=== PATIENT | female | born 1945 | race Caucasian/White ===

== ENCOUNTER 2018-01-25 21:51 | Emergency (ER) | payer MEDICARE ==
--- NOTE | 2018-01-25 22:01 | Emergency Department Record ---
History of Present Illness - General Chief Complaint: Ankle/Foot Injury Stated Complaint: RT FOOT PINKIE TOE PAIN,SWELLING, Time Seen by Provider: 01/25/18 21:55 Mode of Arrival: Wheelchair Limitations: No limitations - History of Present Illness Initial Comments: The patient is here due to R 5th toe pain. She banged it on an object about 20 minutes ago and thinks she broke it. She denies any other injuries. MD Complaint: Foot injury - Related Data Home Medications Medication Instructions Recorded Confirmed Last Taken Aspirin Chewable 81 mg PO DAILY 01/25/18 01/25/18 01/25/18 Duloxetine HCl [Cymbalta] 20 mg PO DAILY 01/25/18 01/25/18 01/25/18 Gabapentin [Neurontin] 300 mg PO BID 01/25/18 01/25/18 01/25/18 Omeprazole [Prilosec] 20 mg PO DAILY 01/25/18 01/25/18 01/25/18 Rosuvastatin Calcium [Crestor] 5 mg PO DAILY 01/25/18 01/25/18 01/25/18 Allergies Allergy/AdvReac Type Severity Reaction Status Date / Time bacitracin Allergy HYPERSENSIT Verified 01/25/18 22:03 [From Neosporin IVITY ([id number])] neomycin Allergy HYPERSENSIT Verified 01/25/18 22:03 [From Neosporin IVITY ([id number])] Penicillins Allergy RASH Verified 01/25/18 22:03 polymyxin B Allergy HYPERSENSIT Verified 01/25/18 22:03 [From Neosporin IVITY ([id number])] Review of Systems Constitutional: Denies: Chills, Fever Physical Exam - General General Appearance: Alert, Cooperative, No acute distress - Extremities Extremities exam: Normal inspection, Normal capillary refill, Tenderness (There is tenderness to the R 5th toe with a very mild valgus deformity. There is no MT tenderness.), Other (The R ankle is nontender.). negative: Full ROM, Joint swelling, Pedal edema Course Vital Signs 01/25/18 21:59 Temperature 98.4 F Pulse Rate [ 66 Pulse Ox Probe] Respiratory 18 Rate Blood Pressure 131/73 [Left Arm] Pulse Ox 99 - Reevaluation(s) Reevaluation #1: I did discuss the need for juliana taping with the patient and a hard soled shoe for 2 weeks. She is to be referred to Dr. Robledo for this week. 01/25/18 22:46 Medical Decision Making - Data Complexity MDM Data: X-Ray Ordered and/or Reviewed - Radiology Data Radiology results: Report reviewed (R foot: Mildly displaced fx mid proximal phalynx R 5th toe.) Disposition Disposition: Discharge Clinical Impression: Toe fracture, right Qualifiers: Encounter type: initial encounter Toe: unspecified toe Fracture type: closed Fracture alignment: displaced Qualified Code(s): S92.911A - Unspecified fracture of right toe(s), initial encounter for closed fracture Disposition: Home, Self-Care Condition: (2) Stable Instructions: Toe Fracture (ED) Additional Instructions: Please use Tylenol for pain and ice and elevate the foot when possible. Please keep the toes juliana taped and wear the hard soled shoe. Please see Dr. Robledo in the Specialty clinic later this week. Return to the ER for any problems or new issues. Referrals: [facility] Specialty Clinics [Provider Group] Forms: Patient Portal Access Time of Disposition: 22:47 Quality - Quality Measures Quality Measures: N/A - Blood Pressure Screening View Details: Yes Does Patient Have Any of the Following: No Blood Pressure Classification: Pre-Hypertensive BP Reading Systolic Measurement: 130 Diastolic Measurement: 75 Screening for High Blood Pressure: < Pre-Hypertensive BP, F/U Documented > [ G8950] Pre-Hypertensive Follow-up Interventions: Referral to alternative/primary care provider.
[2018-01-25] MEDS: ACETAMINOPHEN 325 MG TAB PO ONE (22:58)
--- NOTE | 2018-01-27 10:50 | RADIOLOGY REPORT ---
EXAM: RIGHT FOOT HISTORY: TRAUMA, RIGHT FIFTH TOE KICK INJURY WITH PAIN AND SWELLING. TECHNIQUE: Three views of the right foot were obtained. Comparison: None. Encounter: Initial. FINDINGS: Diffuse osteopenia is seen consistent with osteoporosis. Mild degenerative arthritis at the first MTP joint with a mild hallux valgus deformity. There is an oblique fracture of the shaft of the proximal phalanx of the fifth toe with very minimal lateral angulation of the distal fracture fragment. No other fracture of the right foot identified. Moderate posterior calcaneal spur. IMPRESSION: 1. FRACTURE OF THE SHAFT OF THE PROXIMAL PHALANX OF THE RIGHT FIFTH TOE. 2. MILD DEGENERATIVE CHANGE FIRST MTP JOINT AND A MODERATE POSTERIOR CALCANEAL SPUR. JOB NUMBER: [id number] MTDD
== END 2018-01-25 23:08 | disposition home or self-care (01) ==
LOC: ER 21:51
DX: S92.511A Displaced fracture of proximal phalanx of right lesser toe(s), initial encounter for closed fracture (principal); W22.8XXA Striking against or struck by other objects, initial encounter
CPT/HCPCS: 99283

== ENCOUNTER 2018-04-20 10:12 | Emergency (ER) | payer MEDICARE ==
--- NOTE | 2018-04-20 10:47 | Emergency Department Record ---
History of Present Illness - General Chief Complaint: Back Pain/Injury Stated Complaint: BACK PAIN Time Seen by Provider: 04/20/18 10:35 Source: Patient, RN notes reviewed - History of Present Illness Initial Comments: patient has pain in the left thoracic back pain. patient was moving boxes and [place] Complaint: Back pain Onset/Timin -: Week(s) Similar Symptoms Previously: Yes Place: Home Severity: Moderate Severity scale (1-10): 8 Quality: Aching, Sharp Consistency: Getting worse Improves With: Medication Worsens With: Movement Context: Turning/twisting, While lifting Associated Symptoms: Denies other symptoms Treatments Prior to Arrival: NSAIDS, Prescription analgesics Treatment Prior to Arrival Comment:: Aleeve and left over meds from previous back pain - Related Data Home Medications Medication Instructions Recorded Confirmed Last Taken Albuterol Sulfate [Ventolin Hfa] 1 - 2 puff IH .EVERY 4-6 HOURS PRN 04/20/1811/02 Unknown Metoprolol Succinate [Toprol Xl] 25 mg PO DAILY 04/20/18 04/20/18 04/20/18 Pantoprazole Sodium [Protonix] 40 mg PO DAILY 04/20/18 04/20/18 04/20/18 Previous Rx's Medication Instructions Recorded Cyclobenzaprine HCl [Flexeril] 10 mg PO TID #30 tablet 04/20/18 Naproxen [Naprosyn] 500 mg PO BID #30 tablet 04/20/18 Tramadol HCl [Ultram] 50 mg PO Q8H #9 tab 04/20/18 Allergies Allergy/AdvReac Type Severity Reaction Status Date / Time bacitracin Allergy HYPERSENSIT Verified 01/25/18 22:03 [From Neosporin IVITY ([id number])] neomycin Allergy HYPERSENSIT Verified 01/25/18 22:03 [From Neosporin IVITY ([id number])] Penicillins Allergy RASH Verified 01/25/18 22:03 polymyxin B Allergy HYPERSENSIT Verified 01/25/18 22:03 [From Neosporin IVITY ([id number])] Travel Screening - Travel/Exposure Within Last 30 Days Have you traveled within the last 30 days?: No - Travel/Exposure Within Last Year Have you traveled outside the [place] in the last year?: No - Additonal Travel Details Have you been exposed to anyone with a communicable illness?: No - Travel Symptoms Symptom Screening: None Review of Systems Reviewed: No additional complaints except as noted below Constitutional: Reports: As per HPI. Denies: Chills, Fever, Malaise, Night sweats, Weakness, Weight change Eyes: Reports: As per HPI. Denies: Eye discharge, Eye pain, Photophobia, Vision change ENT: Reports: As per HPI. Denies: Congestion, Dental pain, Ear pain, Epistaxis , Hearing loss, Throat pain Respiratory: Reports: As per HPI. Denies: Cough, Dyspnea, Hemoptysis, Stridor, Wheezes Cardiovascular: Reports: As per HPI. Denies: Arrhythmia, Chest pain, Dyspnea on exertion, Edema, Murmurs, Orthopnea, Palpitations, Paroxysmal nocturnal dyspnea, Rheumatic Fever, Syncope Endocrine: Reports: As per HPI. Denies: Fatigue, Heat or cold intolerance, Polydipsia, Polyuria Gastrointestinal: Reports: As per HPI. Denies: Abdominal pain, Constipation, Diarrhea, Hematemesis, Hematochezia, Melena, Nausea, Vomiting Genitourinary: Reports: As per HPI. Denies: Abnormal menses, Discharge, Dyspareunia, Dysuria, Frequency, Hematuria, Incontinence, Retention, Urgency Musculoskeletal: Reports: As per HPI, Back pain. Denies: Arthralgia, Gout, Joint swelling, Myalgia, Neck pain Skin: Reports: As per HPI. Denies: Bruising, Change in color, Change in hair/ nails, Lesions, Pruritus, Rash Neurological: Reports: As per HPI. Denies: Abnormal gait, Confusion, Headache, Numbness, Paresthesias, Seizure, Tingling, Tremors, Vertigo, Weakness Psychiatric: Reports: As per HPI. Denies: Anxiety, Auditory hallucinations, Depression, Homicidal thoughts, Suicidal thoughts, Visual hallucinations Hematological/Lymphatic: Reports: As per HPI. Denies: Anemia, Blood Clots, Easy bleeding, Easy bruising, Swollen glands Past Medical History - SOCIAL HISTORY Smoking Status: Current every day smoker Alcohol Use: Occasional Drug Use: None - RESPIRATORY Hx Respiratory Disorders: Yes Hx COPD: Yes - CARDIOVASCULAR Hx Cardio Disorders: Yes Hx Heart Attack: Yes Hx Hypertension: Yes - NEURO Hx Neuro Disorders: Yes Hx Neuropathy: Yes - GI Hx GI Disorders: Yes Hx Reflux: Yes - Hx Genitourinary Disorders: No - ENDOCRINE Hx Endocrine Disorders: No - MUSCULOSKELETAL Hx Musculoskeletal Disorders: Yes Comment:: OSTEOPNEIA - PSYCH Hx Psych Problems: Yes Hx Depression: Yes - HEMATOLOGY/ONCOLOGY Hx Hematology/Oncology Disorders: Yes Hx Cancer: Yes (SKIN) Family Medical History Any Significant Family History?: No Physical Exam - General General Appearance: Alert, Oriented x3, Cooperative, No acute distress - Head Head exam: Normal inspection - Eye Eye exam: Normal appearance, PERRL Pupils: Normal accommodation - ENT ENT exam: Normal exam, Mucous membranes moist, Normal external ear exam, Normal orophraynx, TM's normal bilaterally Ear exam: Normal external inspection. negative: External canal tenderness Nasal Exam: Normal inspection. negative: Discharge, Sinus tenderness Mouth exam: Normal external inspection, Tongue normal Teeth exam: Normal inspection. negative: Dental caries Throat exam: Normal inspection. negative: Tonsillar erythema, Tonsillar exudate - Neck Neck exam: Normal inspection, Full ROM. negative: Tenderness - Respiratory Respiratory exam: Normal lung sounds bilaterally. negative: Respiratory distress - Cardiovascular Cardiovascular Exam: Regular rate, Normal rhythm, Normal heart sounds - GI/Abdominal GI/Abdominal exam: Soft, Normal bowel sounds. negative: Tenderness - Rectal Rectal exam: Deferred - exam: Deferred - Extremities Extremities exam: Normal inspection, Full ROM, Normal capillary refill. negative: Tenderness - Back Back exam: Reports: Normal inspection, Full ROM, Muscle spasm, Tenderness (left thoracic back pain). Denies: Rash noted - Neurological Neurological exam: Alert, Normal gait, Oriented X3, Reflexes normal - Psychiatric Psychiatric exam: Normal affect, Normal mood - Skin Skin exam: Dry, Intact, Normal color, Warm Course Vital Signs 04/20/18 10:32 Temperature 97.7 F Pulse Rate 73 Respiratory 16 Rate Blood Pressure 153/72 Pulse Ox 100 Disposition Clinical Impression: Thoracic myofascial strain Qualifiers: Encounter type: initial encounter Qualified Code(s): S29.019A - Strain of muscle and tendon of unspecified wall of thorax, initial encounter Disposition: Home, Self-Care Condition: (1) Good Instructions: Low Back Strain (ED) Additional Instructions: follow up with a family Dr in one week alternate between hot and cold Prescriptions: Cyclobenzaprine HCl [Flexeril] 10 mg PO TID #30 tablet Naproxen [Naprosyn] 500 mg PO BID #30 tablet Tramadol HCl [Ultram] 50 mg PO Q8H #9 tab Time of Disposition: 10:52 Quality - Quality Measures Quality Measures: N/A - Blood Pressure Screening Does Patient Have Any of the Following: No, Active Dx of HTN Blood Pressure Classification: Hypertensive Reading Systolic Measurement: 153 Diastolic Measurement: 72 Screening for High Blood Pressure: Patient Exclusion, Hx of HTN [G9744]
== END 2018-04-20 11:05 | disposition home or self-care (01) ==
LOC: ER 10:12
DX: S29.019A Strain of muscle and tendon of unspecified wall of thorax, initial encounter (principal); J44.9 Chronic obstructive pulmonary disease, unspecified; I10 Essential (primary) hypertension; I25.2 Old myocardial infarction; F17.210 Nicotine dependence, cigarettes, uncomplicated; X50.0XXA Overexertion from strenuous movement or load, initial encounter; Y93.E6 Activity, residential relocation; Y92.009 Unspecified place in unspecified non-institutional (private) residence as the place of occurrence of the external cause
CPT/HCPCS: 99282

== ENCOUNTER 2018-06-05 11:35 | Emergency (ER) | payer MEDICARE ==
[2018-06-05] MEDS ORDERED: MORPHINE SULFATE 10 MG/ML VIAL IM ONE (12:08)
[2018-06-05] MEDS ORDERED: PROMETHAZINE HCL 25 MG/ML VIAL IM ONE (12:09)
[2018-06-05] MEDS ORDERED: KETOROLAC 30 MG/ML VIAL IM ONE (12:13)
--- NOTE | 2018-06-05 12:18 | Emergency Department Record ---
History of Present Illness - General Chief Complaint: Back Pain/Injury Stated Complaint: BACK PAIN Time Seen by Provider: 06/05/18 11:55 Source: Patient, Family Mode of Arrival: Ambulatory Limitations: No limitations - History of Present Illness Initial Comments: pt has had back pain for 6 wks. she believes it started when she lifted a box. it has grown progressively worse. she is unable to get in a comfortable position. she denies any numbness MD Complaint: Back pain Onset/Timin -: Days(s) Place: Home Radiation: None Severity scale (1-10): 10 Consistency: Constant Improves With: None Worsens With: Movement, Sitting upright, Supine Context: While lifting Associated Symptoms: Difficulty walking Treatments Prior to Arrival: NSAIDS, Other - Related Data Previous Rx's Medication Instructions Recorded Hydrocodone/Acetaminophen [[place] 0.5 - 1 tab PO TID PRN #9 tab 06/05/18 5mg/325mg] Allergies Allergy/AdvReac Type Severity Reaction Status Date / Time bacitracin Allergy HYPERSENSIT Verified 06/05/18 11:54 [From Neosporin IVITY ([id number])] neomycin Allergy HYPERSENSIT Verified 06/05/18 11:54 [From Neosporin IVITY ([id number])] Penicillins Allergy RASH Verified 06/05/18 11:54 polymyxin B Allergy HYPERSENSIT Verified 06/05/18 11:54 [From Neosporin IVITY ([id number])] Travel Screening - Travel/Exposure Within Last 30 Days Have you traveled within the last 30 days?: No - Travel/Exposure Within Last Year Have you traveled outside the [place] in the last year?: No - Additonal Travel Details Have you been exposed to anyone with a communicable illness?: No - Travel Symptoms Symptom Screening: None Review of Systems Reviewed: No additional complaints except as noted below Constitutional: Reports: As per HPI. Denies: Chills, Fever, Malaise, Night sweats, Weakness, Weight change Eyes: Reports: As per HPI. Denies: Eye discharge, Eye pain, Photophobia, Vision change ENT: Reports: As per HPI. Denies: Congestion, Dental pain, Ear pain, Epistaxis , Hearing loss, Throat pain Respiratory: Reports: As per HPI. Denies: Cough, Dyspnea, Hemoptysis, Stridor, Wheezes Cardiovascular: Reports: As per HPI. Denies: Arrhythmia, Chest pain, Dyspnea on exertion, Edema, Murmurs, Orthopnea, Palpitations, Paroxysmal nocturnal dyspnea, Rheumatic Fever, Syncope Endocrine: Reports: As per HPI. Denies: Fatigue, Heat or cold intolerance, Polydipsia, Polyuria Gastrointestinal: Reports: As per HPI. Denies: Abdominal pain, Constipation, Diarrhea, Hematemesis, Hematochezia, Melena, Nausea, Vomiting Genitourinary: Reports: As per HPI. Denies: Abnormal menses, Discharge, Dyspareunia, Dysuria, Frequency, Hematuria, Incontinence, Retention, Urgency Musculoskeletal: Reports: As per HPI, Back pain. Denies: Arthralgia, Gout, Joint swelling, Myalgia, Neck pain Skin: Reports: As per HPI. Denies: Bruising, Change in color, Change in hair/ nails, Lesions, Pruritus, Rash Neurological: Reports: As per HPI. Denies: Abnormal gait, Confusion, Headache, Numbness, Paresthesias, Seizure, Tingling, Tremors, Vertigo, Weakness Psychiatric: Reports: As per HPI. Denies: Anxiety, Auditory hallucinations, Depression, Homicidal thoughts, Suicidal thoughts, Visual hallucinations Hematological/Lymphatic: Reports: As per HPI. Denies: Anemia, Blood Clots, Easy bleeding, Easy bruising, Swollen glands Past Medical History - SOCIAL HISTORY Smoking Status: Light tobacco smoker (<10/day) Alcohol Use: Rare Drug Use: None - RESPIRATORY Hx Respiratory Disorders: Yes Hx COPD: Yes - CARDIOVASCULAR Hx Cardio Disorders: Yes Hx Heart Attack: Yes (2011) Hx Hypertension: Yes - NEURO Hx Neuro Disorders: Yes Hx Neuropathy: Yes - GI Hx GI Disorders: Yes Hx Reflux: Yes - Hx Genitourinary Disorders: No - ENDOCRINE Hx Endocrine Disorders: No - MUSCULOSKELETAL Hx Musculoskeletal Disorders: Yes Comment:: OSTEOPNEIA - PSYCH Hx Psych Problems: Yes Hx Depression: Yes - HEMATOLOGY/ONCOLOGY Hx Hematology/Oncology Disorders: Yes Hx Cancer: Yes (SKIN) Family Medical History Any Significant Family History?: No Physical Exam - General General Appearance: Alert, Oriented x3, Cooperative, Mild distress - Head Head exam: Normal inspection - Eye Eye exam: Normal appearance, PERRL, EOMI Pupils: Normal accommodation - ENT ENT exam: Normal exam, Mucous membranes moist, Normal external ear exam, Normal orophraynx Ear exam: Normal external inspection. negative: External canal tenderness Nasal Exam: Normal inspection. negative: Discharge, Sinus tenderness Mouth exam: Normal external inspection, Tongue normal Teeth exam: Normal inspection. negative: Dental caries Throat exam: Normal inspection. negative: Tonsillar erythema, Tonsillar exudate - Neck Neck exam: Normal inspection, Full ROM. negative: Tenderness - Respiratory Respiratory exam: Normal lung sounds bilaterally. negative: Respiratory distress - Cardiovascular Cardiovascular Exam: Regular rate, Normal rhythm, Normal heart sounds - GI/Abdominal GI/Abdominal exam: Soft, Normal bowel sounds. negative: Tenderness - Rectal Rectal exam: Deferred - exam: Deferred - Extremities Extremities exam: Normal inspection, Full ROM, Normal capillary refill. negative: Tenderness - Back Back exam: Reports: Full ROM, Muscle spasm, Tenderness. Denies: Rash noted - Neurological Neurological exam: Alert, CN II-XII intact, Normal gait, Oriented X3 - Psychiatric Psychiatric exam: Normal affect, Normal mood - Skin Skin exam: Dry, Intact, Normal color, Warm Course Vital Signs 06/05/18 11:40 Temperature 97.9 F Pulse Rate 77 Respiratory 18 Rate Blood Pressure 168/86 Pulse Ox 100 - Reevaluation(s) Reevaluation #1: 06/05/18 12:46 pt d/w carlo. mri will be ordered Disposition Disposition: Discharge Clinical Impression: Back pain Qualifiers: Back pain location: thoracic back pain Chronicity: acute Back pain laterality: midline Qualified Code(s): M54.6 - Pain in thoracic spine Disposition: Home, Self-Care Condition: (1) Good Instructions: Back Pain (ED) Additional Instructions: call to schedule MRI. take a norco prior to going. follow up with carlo. return sooner if worse. continue to take motrin with food. stop ultram. Prescriptions: Hydrocodone/Acetaminophen [[place] 5mg/325mg] 0.5 - 1 tab PO TID PRN #9 tab PRN Reason: Pain - General Forms: Patient Portal Access Quality - Quality Measures Quality Measures: N/A - Blood Pressure Screening Does Patient Have Any of the Following: No Blood Pressure Classification: Pre-Hypertensive BP Reading Systolic Measurement: 168 Diastolic Measurement: 86 Screening for High Blood Pressure: < Pre-Hypertensive BP, F/U Documented > [ G8950] Pre-Hypertensive Follow-up Interventions: Follow-up with rescreen every year.
== END 2018-06-05 13:03 | disposition home or self-care (01) ==
LOC: ER 11:35
DX: M54.6 Pain in thoracic spine (principal); J44.9 Chronic obstructive pulmonary disease, unspecified; I10 Essential (primary) hypertension; I25.2 Old myocardial infarction; F17.210 Nicotine dependence, cigarettes, uncomplicated
CPT/HCPCS: 99283 ×2; 96372; J1885; J2270; J2550

== ENCOUNTER 2018-07-09 19:57 | Emergency (ER) | payer MEDICARE ==
[2018-07-09] MEDS ORDERED: ACETAMINOPHEN 1,000 MG/100 ML BTL IVPB ONE (20:20)
[2018-07-09] MEDS ORDERED: KETOROLAC 30 MG/ML VIAL IVP ONE (20:20)
--- NOTE | 2018-07-09 20:27 | Emergency Department Record ---
History of Present Illness - General Chief Complaint: Back Pain/Injury Stated Complaint: BACK SPASM Time Seen by Provider: 07/09/18 20:09 Source: Patient Mode of Arrival: Ambulatory Limitations: No limitations - History of Present Illness Initial Comments: The patient is here due to worsening of her chronic back pain. The patient has had pain since she injured herself about 6 months ago. She since has been to the ER multiple times for these issues. Recently she had a thoracic spine MRI that demonstrated 3 compression fractures and she does have an appointment with [facility] in Aug. Now recently she has been having pain in the lower back in addition to her thoracic area. There has been no new trauma, fall or injury. Additionally she has had no leg numbness, weakness, or bowel or bladder incontinence. The patient states she has been having problems with urinary urgency for months but it is not new now. There have been no fevers, or chills and the patient is not on any blood thinners. MD Complaint: Back pain Onset/Timin -: Month(s) Similar Symptoms Previously: Yes Place: Home Radiation: None Severity: Severe Severity scale (1-10): 10 Quality: Aching Consistency: Constant Improves With: Sitting upright, Other Worsens With: Movement, Walking Context: Other Associated Symptoms: Denies other symptoms Treatments Prior to Arrival: Prescription analgesics Treatment Prior to Arrival Comment:: flexeril - Related Data Previous Rx's Medication Instructions Recorded Lidocaine Patch [Lidoderm] 1 ea TOP DAILY #10 patch 07/09/18 Allergies Allergy/AdvReac Type Severity Reaction Status Date / Time bacitracin Allergy HYPERSENSIT Unverified 06/08/18 15:19 [From Neosporin IVITY ([id number])] neomycin Allergy HYPERSENSIT Unverified 06/08/18 15:19 [From Neosporin IVITY ([id number])] Penicillins Allergy RASH Unverified 06/08/18 15:19 polymyxin B Allergy HYPERSENSIT Unverified 06/08/18 15:19 [From Neosporin IVITY ([id number])] Travel Screening - Travel/Exposure Within Last 30 Days Have you traveled within the last 30 days?: No - Travel Symptoms Symptom Screening: None Review of Systems Constitutional: Denies: Chills, Fever Eyes: Denies: Eye discharge ENT: Denies: Congestion Respiratory: Denies: Cough, Dyspnea Cardiovascular: Denies: Arrhythmia, Chest pain Endocrine: Denies: Fatigue Gastrointestinal: Denies: Abdominal pain Genitourinary: Reports: Dysuria Musculoskeletal: Reports: Back pain (chronic.) Skin: Denies: Bruising Past Medical History - SOCIAL HISTORY Smoking Status: Light tobacco smoker (<10/day) Alcohol Use: Rare Drug Use: None - RESPIRATORY Hx Respiratory Disorders: Yes Hx COPD: Yes - CARDIOVASCULAR Hx Cardio Disorders: Yes Hx Heart Attack: Yes (2011) Hx Hypertension: Yes - NEURO Hx Neuro Disorders: Yes Hx Neuropathy: Yes - GI Hx GI Disorders: Yes Hx Reflux: Yes - Hx Genitourinary Disorders: No - ENDOCRINE Hx Endocrine Disorders: No - MUSCULOSKELETAL Hx Musculoskeletal Disorders: Yes Comment:: OSTEOPNEIA - PSYCH Hx Psych Problems: Yes Hx Depression: Yes - HEMATOLOGY/ONCOLOGY Hx Hematology/Oncology Disorders: Yes Hx Cancer: Yes (SKIN) Family Medical History Any Significant Family History?: No Family Hx Comment (NOT TO BE USED IN PLACE OF ITEMS BELOW): denies Physical Exam - General General Appearance: Alert, Oriented x3, Cooperative, No acute distress - Head Head exam: Atraumatic, Normocephalic, Normal inspection - Eye Eye exam: Normal appearance, PERRL - Neck Neck exam: Normal inspection, Full ROM. negative: Tenderness - Respiratory Respiratory exam: Normal lung sounds bilaterally. negative: Respiratory distress - Cardiovascular Cardiovascular Exam: Regular rate, Normal rhythm, Normal heart sounds - GI/Abdominal GI/Abdominal exam: Soft, Normal bowel sounds. negative: Tenderness - Extremities Extremities exam: Normal inspection, Full ROM, Normal capillary refill, Other ( Neg SLR bilaterally.). negative: Joint swelling, Tenderness - Back Back exam: Reports: Normal inspection, Vertebral tenderness (Mild from L1-3.). Denies: Paraspinal tenderness - Neurological Neurological exam: Alert, Altered, Normal gait, Oriented X3, Reflexes normal. negative: Abnormal gait, Motor sensory deficit Course Vital Signs 07/09/18 20:05 Temperature 97.5 F L Pulse Rate 67 Respiratory 22 Rate Blood Pressure 146/81 Pulse Ox 97 - Reevaluation(s) Reevaluation #1: The patient is doing better at this time and does feel comfortable enough to go home. Her pain is improved. I did discuss the xray results and the new mild comp fx of L2. She is to try the new pain medicines and see her PCP tomorrow if needed. 07/09/18 21:38 Medical Decision Making - Data Complexity MDM Data: Labs Ordered and/or Reviewed, X-Ray Ordered and/or Reviewed - Lab Data Result diagrams: 07/09/18 20:30 07/09/18 20:30 - Radiology Data Radiology results: Report reviewed (Lumbar spine: Old compression fx L5, new mild compression fx L2.) Disposition Disposition: Discharge Clinical Impression: Lumbar compression fracture Qualifiers: Encounter type: initial encounter Lumbar vertebra fracture level: L2 Fracture type: closed Qualified Code(s): S32.020A - Wedge compression fracture of second lumbar vertebra, initial encounter for closed fracture Disposition: Home, Self-Care Condition: (2) Stable Instructions: Thoracolumbar Fracture (ED) Additional Instructions: Please continue your home medicines and try the Lidoderm patches. Please call your doctor tomorrow for further evaluation and possibly a pain clinic evaluation. Please return to the ER for any worsening pain, or any weakness or numbness. Prescriptions: Lidocaine Patch [Lidoderm] 1 ea TOP DAILY #10 patch Forms: Patient Portal Access Time of Disposition: 21:35 Quality - Quality Measures Quality Measures: N/A - Blood Pressure Screening View Details: Yes Does Patient Have Any of the Following: No Blood Pressure Classification: Pre-Hypertensive BP Reading Systolic Measurement: 146 Diastolic Measurement: 81 Screening for High Blood Pressure: < Pre-Hypertensive BP, F/U Documented > [ G8950] Pre-Hypertensive Follow-up Interventions: Referral to alternative/primary care provider.
[2018-07-09 20:34] LABS: BASO % 0.5 % (0-6); EOS % 0.6 % (0-6); GRAN % 64.3 % (47-80); HEMATOCRIT 41.8 % (35.0-47.0); LYMPH % 23.9 % (16-45); MEAN CELL VOLUME 90.1 fl (81-97); MEAN CORPUSCULAR HEMOGLOBIN 30.2 pg (27-33); MEAN CORPUSCULAR HGB CONC 33.5 g/dl (32-36); MEAN PLATELET VOLUME 10.7 fl (7.4-10.4); MONO % 10.7 % (0-9); PLATELET COUNT 324 K/uL (130-400); RED BLOOD COUNT 4.64 M/uL (3.80-5.40); RED CELL DISTRIBUTION WIDTH 13.9 % (11.5-14.5); WHITE BLOOD COUNT W/O DIFF 12.3 K/uL (4.2-12.2)
[2018-07-09 20:46] LABS: BLOOD UREA NITROGEN 15 mg/dL (8-23); CREATININE 0.9 mg/dL (0.5-0.9); EST GLOMERULAR FILTRATION RATE > 60 mL/min
[2018-07-09 20:49] LABS: GLUCOSE,RANDOM 99 mg/dL (74-109)
[2018-07-09] MEDS ORDERED: LIDOCAINE 5% PATCH TOP ONE (21:13)
[2018-07-09 21:24] LABS: URINE APPEARANCE CLEAR; URINE BILIRUBIN NEGATIVE (NEGATIVE); URINE BLOOD NEGATIVE (NEGATIVE); URINE COLOR YELLOW; URINE GLUCOSE (UA) NEGATIVE (NEGATIVE); URINE KETONE TRACE (NEGATIVE); URINE LEUKOCYTE ESTERASE NEGATIVE (NEGATIVE); URINE NITRITE NEGATIVE (NEGATIVE); URINE PROTEIN NEGATIVE (NEGATIVE); URINE UROBILINOGEN 0.2 E.U./dL (0.20 - 1.00)
--- NOTE | 2018-07-10 10:14 | RADIOLOGY REPORT ---
EXAM: LUMBAR SPINE, AP AND LATERAL VIEWS HISTORY: LOW BACK PAIN. NO HISTORY OF INJURY. TECHNIQUE: AP and lateral views of the lumbar spine were obtained. Comparison: No prior lumbar spine series. FINDINGS: Diffuse osteopenia is seen consistent with osteoporosis. There is mild compression of the body of L5. This was present on a prior abdomen and pelvis CT dated 06/02/18, however, there is also mild compression of the superior end plate of L2 today which was not apparent on the prior abdomen and pelvis CT of 06/02/18. Mild spurring scattered through the lumbar spine. The lumbar intervertebral disk spaces themselves are relatively maintained with probably slight narrowing of the first, second, and fifth lumbar interspaces. Facet joint arthropathy lower lumbar spine. IMPRESSION: 1. CHRONIC MILD COMPRESSION FRACTURE OF L5. 2. NEW MILD COMPRESSION FRACTURE SUPERIOR END PLATE OF L2. 3. SLIGHT NARROWING OF THE FIRST, SECOND, AND FIFTH LUMBAR INTERSPACES WITH MILD SCATTERED HYPERTROPHIC SPURRING IN THE LUMBAR SPINE. 4. FACET JOINT ARTHROPATHY LOWER LUMBAR SPINE. JOB NUMBER: [id number] [facility]
== END 2018-07-09 21:47 | disposition home or self-care (01) ==
LOC: ER 19:57
DX: S32.020A Wedge compression fracture of second lumbar vertebra, initial encounter for closed fracture (principal); X58.XXXA Exposure to other specified factors, initial encounter; I10 Essential (primary) hypertension; I25.2 Old myocardial infarction; F17.210 Nicotine dependence, cigarettes, uncomplicated
CPT/HCPCS: 99284 ×2; 96365; 96375; 85025; 80048; 81003; 72100; J1885

== ENCOUNTER 2018-07-10 18:07 | Emergency (ER) | payer MEDICARE ==
[2018-07-10] MEDS ORDERED: ONDANSETRON HCL IV 4 MG/2 ML VIAL IVP ONE (18:33)
[2018-07-10] MEDS ORDERED: HYDROMORPHONE HCL 2 MG/ML VIAL IVP ONE ×2 (18:33→19:03)
--- NOTE | 2018-07-10 18:37 | Emergency Department Record ---
History of Present Illness - General Chief Complaint: Back Pain/Injury Stated Complaint: LOWER BACK PAIN Time Seen by Provider: 07/10/18 18:26 Source: Patient Mode of Arrival: Ambulatory Limitations: No limitations - History of Present Illness Initial Comments: The patient is here due to having a hx of back pain for about 6 months with a hx of multiple compression fx's of her spine. Two days ago she developed worsening pain again and was in the ER here last night where she had a new fx of L2 diagnosed. The patient was doing better after IV pain medicines last night but then the pain worsened today. She denies any leg numbness or weakness or any bowel or bladder issues. Now she returned to the ER for pain control. MD Complaint: Back pain Onset/Timin -: Month(s) Radiation: None Severity: Severe Severity scale (1-10): 10 Consistency: Constant Improves With: None Worsens With: None Associated Symptoms: Denies other symptoms - Related Data Previous Rx's Medication Instructions Recorded Lidocaine Patch [Lidoderm] 1 ea TOP DAILY #10 patch 07/09/18 Allergies Allergy/AdvReac Type Severity Reaction Status Date / Time bacitracin Allergy HYPERSENSIT Verified 07/10/18 18:23 [From Neosporin IVITY ([id number])] neomycin Allergy HYPERSENSIT Verified 07/10/18 18:23 [From Neosporin IVITY ([id number])] Penicillins Allergy RASH Verified 07/10/18 18:23 polymyxin B Allergy HYPERSENSIT Verified 07/10/18 18:23 [From Neosporin IVITY ([id number])] Travel Screening - Travel/Exposure Within Last 30 Days Have you traveled within the last 30 days?: No Review of Systems Constitutional: Denies: Chills, Fever Eyes: Denies: Eye discharge ENT: Denies: Congestion Respiratory: Denies: Cough, Dyspnea Cardiovascular: Denies: Arrhythmia, Chest pain Endocrine: Denies: Fatigue Gastrointestinal: Denies: Nausea Genitourinary: Denies: Dysuria Musculoskeletal: Reports: Back pain. Denies: Arthralgia Skin: Denies: Bruising Past Medical History - SOCIAL HISTORY Smoking Status: Light tobacco smoker (<10/day) Alcohol Use: None Drug Use: None - RESPIRATORY Hx Respiratory Disorders: Yes Hx COPD: Yes - CARDIOVASCULAR Hx Cardio Disorders: Yes Hx Heart Attack: Yes (2011) Hx Hypertension: Yes - NEURO Hx Neuro Disorders: Yes Hx Neuropathy: Yes - GI Hx GI Disorders: Yes Hx Reflux: Yes - Hx Genitourinary Disorders: No - ENDOCRINE Hx Endocrine Disorders: No - MUSCULOSKELETAL Hx Musculoskeletal Disorders: Yes Comment:: OSTEOPNEIA - PSYCH Hx Psych Problems: Yes Hx Depression: Yes - HEMATOLOGY/ONCOLOGY Hx Hematology/Oncology Disorders: Yes Hx Cancer: Yes (SKIN) Family Medical History Any Significant Family History?: No Family Hx Comment (NOT TO BE USED IN PLACE OF ITEMS BELOW): denies Physical Exam - General General Appearance: Alert, Oriented x3, Cooperative, Mild distress - Head Head exam: Atraumatic, Normocephalic - Eye Eye exam: Normal appearance, PERRL - Neck Neck exam: Normal inspection, Full ROM. negative: Tenderness - Respiratory Respiratory exam: Normal lung sounds bilaterally. negative: Respiratory distress - Cardiovascular Cardiovascular Exam: Regular rate, Normal rhythm, Normal heart sounds - GI/Abdominal GI/Abdominal exam: Soft, Normal bowel sounds. negative: Tenderness - Extremities Extremities exam: Normal inspection - Back Back exam: Reports: Normal inspection, Vertebral tenderness (There is significant L1-4 spinal tenderness.). Denies: Paraspinal tenderness - Neurological Neurological exam: Alert, Normal gait. negative: Abnormal gait, Motor sensory deficit - Psychiatric Psychiatric exam: negative: Anxious Course Vital Signs 07/10/18 18:21 Temperature 97.5 F L Pulse Rate 78 Respiratory 20 Rate Blood Pressure 168/85 Pulse Ox 99 - Reevaluation(s) Reevaluation #1: Due to the nature of the patients pain and the new L2 fx I do feel she would benefit from a Spine surgery consultation. Due to that fact I did discuss the [place] [facility] [place] did [place] the patient. 07/10/18 18:50 Medical Decision Making - Data Complexity MDM Data: X-Ray Ordered and/or Reviewed - Radiology Data Radiology results: Image reviewed (L2 and 5 comp fx's. No change from yesterday. ) Disposition Disposition: Transfer Clinical Impression: Lumbar compression fracture Qualifiers: Encounter type: subsequent encounter Lumbar vertebra fracture level: L2 Fracture type: closed Fracture healing: with routine healing Qualified Code(s): S32.020D - Wedge compression fracture of second lumbar vertebra, subsequent encounter for fracture with routine healing Disposition: Acute Care Hospital [place] [facility] Accepting Physician: Lesia Time Discussed w/Accepting Physician: 19:21 Condition: (2) Stable Forms: Patient Portal Access Time of Disposition: 19:21 Quality - Quality Measures Quality Measures: N/A - Blood Pressure Screening View Details: Yes Does Patient Have Any of the Following: No Blood Pressure Classification: Pre-Hypertensive BP Reading Systolic Measurement: 168 Diastolic Measurement: 85 Screening for High Blood Pressure: < Pre-Hypertensive BP, F/U Documented > [ G8950] Pre-Hypertensive Follow-up Interventions: Referral to alternative/primary care provider.
--- NOTE | 2018-07-11 19:44 | RADIOLOGY REPORT ---
EXAM: LUMBAR SPINE / AP LAT HISTORY: LOWER BACK PAIN. TECHNIQUE: AP and lateral views of the lumbar spine were performed. COMPARISON: 07/09/2018. FINDINGS: There is an acute compression fracture deformity of L2. No change when compared to the prior examination. There is degenerative change of L5. IMPRESSION: 1. PROBABLE ACUTE COMPRESSION FRACTURE DEFORMITY OF L2. NO CHANGE IN APPEARANCE WHEN COMPARED TO THE PRIOR EXAMINATION. 2. DEGENERATIVE CHANGE OF L5. JOB NUMBER: [id number] [facility]
== END 2018-07-10 19:23 | disposition short-term general hospital (02) ==
LOC: ER 18:07
DX: S32.020A Wedge compression fracture of second lumbar vertebra, initial encounter for closed fracture (principal); S32.050D Wedge compression fracture of fifth lumbar vertebra, subsequent encounter for fracture with routine healing; X58.XXXA Exposure to other specified factors, initial encounter; I10 Essential (primary) hypertension; I25.2 Old myocardial infarction; F17.210 Nicotine dependence, cigarettes, uncomplicated
CPT/HCPCS: 99285 ×2; 96376; 96374; 96375; 72100; J2405; J1170

== ENCOUNTER 2019-09-10 09:05 | Day surgery (SDC) | payer MEDICARE ==
[2019-09-10] MEDS ORDERED: LIDOCAINE 2% MDV (20MG/ML) 20ML VIAL IV ONE (09:06)
[2019-09-10] MEDS ORDERED: GLYCOPYRROLATE 0.2 MG/ML ML IV ONE (09:06)
[2019-09-10] MEDS ORDERED: PROPOFOL 10 MG/ML VIAL IV ONE (09:06)
--- NOTE | 2019-09-13 08:20 | Operative Note ---
SURGEON: Acacia Kirkland MD OPERATION: COLONOSCOPY. INDICATIONS: This is a 74-year-old female with history of colon polyps who said that her last colonoscopy was in [place] about 3 years ago. She presented for surveillance colonoscopy. POSTOPERATIVE DIAGNOSES: 1. Normal colon with no neoplastic or ulcerative lesions. 2. Grade 2 internal hemorrhoids. ANESTHESIA: Sedation is per Anesthesia. Pulse oximetry was monitored throughout the procedure to maintain O2 saturation of 90% or greater. Supplemental oxygen was administered via nasal cannula. Cardiac and vital signs were monitored throughout the duration of the procedure, and they were stable. The procedure of colonoscopy and risks and alternatives of the procedure, including the risk of bleeding and perforation, among others, were explained to the patient who voiced understanding and agreed to have the procedure done. Physical examination was performed, and the patient was found stable for sedation. PROCEDURE: The patient was placed in the left lateral position. Sedation was initiated. A digital rectal exam was performed and showed some mild external hemorrhoids with no palpable rectal masses. An Olympus PCF-180AL colonoscope was then inserted into the rectum under direct visualization. It was advanced to the cecum without difficulty. The ileocecal valve and appendiceal orifice were identified and photographed. The colonic mucosa was carefully examined upon introduction of the colonoscope. There were no lesions noted. In the rectum, retroflexion was performed and grade 1 internal hemorrhoids were noted. The colonoscope was then withdrawn and the procedure was terminated. The bowel preparation was good. The patient tolerated the procedure well without any immediate complications. The patient remained with stable vital signs and was transferred to the recovery room. RECOMMENDATIONS: 1. The patient should be on a high-fiber diet. 2. The patient is to have a repeat colonoscopy for surveillance in 5 years. Thank you for allowing me to participate in the care of your patient. JOSHUA
== END 2019-09-10 10:36 | disposition home or self-care (01) ==
LOC: HOP 09:05
PROVIDERS: ATTEND Internal Medicine Gastroenterology
DX: Z12.11 Encounter for screening for malignant neoplasm of colon (principal); Z86.010 Personal history of colon polyps; K64.1 Second degree hemorrhoids; J44.9 Chronic obstructive pulmonary disease, unspecified; F17.210 Nicotine dependence, cigarettes, uncomplicated; I10 Essential (primary) hypertension; E78.00 Pure hypercholesterolemia, unspecified
CPT/HCPCS: 00812; G0105